=== PATIENT | female | born 1990 | race Caucasian/White ===

== ENCOUNTER 2017-04-04 15:54 | Emergency (ER) | payer SELFPAY ==
[2017-04-04] MEDS ORDERED: Ibuprofen 200 MG TAB ONE (16:07)
[2017-04-04] MEDS ORDERED: Acetaminophen 500 MG TAB ONE (16:07)
[2017-04-04] MEDS ORDERED: Cephalexin 250 MG CAP ONE (16:07)
== END 2017-04-04 16:28 | disposition home or self-care (01) ==
LOC: NAV ERS 15:54
DX: K04.7 Periapical abscess without sinus (principal)
CPT/HCPCS: 99282

== ENCOUNTER 2017-06-28 08:39 | Emergency (ER) | payer SELFPAY ==
[2017-06-28] MEDS ORDERED: Benzonatate 100 MG CAP ONE (09:06)
== END 2017-06-28 09:10 | disposition home or self-care (01) ==
LOC: NAV ERS 08:39
DX: B34.9 Viral infection, unspecified (principal)
CPT/HCPCS: 99283